=== PATIENT | male | born 1950 | race Caucasian/White ===

== ENCOUNTER 2020-03-05 21:04 | Observation (INO) ==
[2020-03-05] MEDS ORDERED: NITROGLYCERIN SL 0.4 MG TABLET SL PRN (21:26)
[2020-03-05 21:41] LABS: Eosinophils # 0.2 10*3/uL (0.0-0.87); Eosinophils % 4.8 % (0.00-10.9); Hematocrit 34.6 VOL% (42.0-52.0); Hemoglobin 10.9 GM/DL (14.0-18.0); Immature Granulocytes % 0.3 %; Immature Granulocytes Absolute 0.01 #; Lymphocytes # 0.6 10*3/uL (1.4-4.0); Lymphocytes % 16.8 % (21.2-54.2); Mean Corpuscular HGB Conc 31.5 GM/DL (32-36); Mean Corpuscular Volume 85.2 FL (87-102); Mean Platelet Volume 9.8 FL (9.6-12.0); Monocytes % 10.8 % (1.7-12.7); Neutrophils % 67.3 % (38.7-73.9); Platelet Count 190 T/CUMM (130-400); Red Blood Count 4.06 MC/CUMM (3.8-5.5); Red Cell Distribution Width 14.7 % (9.3-17.3); White Blood Count 3.3 T/CUMM (4-12)
[2020-03-05 21:46] LABS: Calcium 9.1 MG/DL (8.5-10.1); Osmolality,Calculated 287.1 MOS/KG (273-304)
[2020-03-05 21:47] LABS: PT Patient Result 10.3 SECS (9.8-11.9)
[2020-03-05] MEDS ORDERED: ONDANSETRON 4 MG/2 ML VIAL IV PRN (22:20)
[2020-03-05] MEDS ORDERED: ACETAMINOPHEN 325 MG TABLET PO PRN (22:20)
[2020-03-06] MEDS: ENOXAPARIN 40 MG/0.4 ML SYRINGE SUBCUT SCH ×2 (00:13→21:45)
[2020-03-06 06:41] LABS: Eosinophils # 0.2 10*3/uL (0.0-0.87); Eosinophils % 5.4 % (0.00-10.9); Hematocrit 32.7 VOL% (42.0-52.0); Hemoglobin 10.7 GM/DL (14.0-18.0); Immature Granulocytes % 0.3 %; Immature Granulocytes Absolute 0.01 #; Lymphocytes # 0.5 10*3/uL (1.4-4.0); Lymphocytes % 15.7 % (21.2-54.2); Mean Corpuscular HGB Conc 32.7 GM/DL (32-36); Mean Corpuscular Volume 83.2 FL (87-102); Mean Platelet Volume 9.6 FL (9.6-12.0); Neutrophils % 67.6 % (38.7-73.9); Platelet Count 163 T/CUMM (130-400); Red Blood Count 3.93 MC/CUMM (3.8-5.5); Red Cell Distribution Width 14.8 % (9.3-17.3)
[2020-03-06 07:06] LABS: Albumin 2.6 G/DL (3.4-5.0); Bilirubin,Total 0.4 MG/DL (0.2-1.0); Calcium 8.9 MG/DL (8.5-10.1); Osmolality,Calculated 278.7 MOS/KG (273-304); Risk Ratio 5.19; Total Protein 6.9 G/DL (6.4-8.3)
[2020-03-06] MEDS ORDERED: ATORVASTATIN 20 MG TABLET PO SCH (09:00)
[2020-03-06] MEDS: ASPIRIN EC 325 MG TABLET PO SCH (09:31)
[2020-03-06] MEDS: carvediloL 3.125 MG TABLET PO SCH ×2 (09:31→17:31)
[2020-03-06] MEDS: ATORVASTATIN 40 MG TABLET PO SCH (09:31)
[2020-03-06] MEDS: lisinopriL 10 MG TABLET PO SCH (09:31)
[2020-03-06] MEDS: ISOSORBIDE DINITRATE 10 MG TABLET PO SCH ×2 (15:36→21:14)
[2020-03-07] MEDS: ASPIRIN EC 325 MG TABLET PO SCH (09:09)
[2020-03-07] MEDS: ISOSORBIDE DINITRATE 10 MG TABLET PO SCH (09:09)
[2020-03-07] MEDS: lisinopriL 10 MG TABLET PO SCH (09:09)
[2020-03-07] MEDS: carvediloL 3.125 MG TABLET PO SCH (09:09)
[2020-03-07] MEDS: ATORVASTATIN 40 MG TABLET PO SCH (09:09)
[2020-03-07 11:44] VITALS: BP 100/55
== END 2020-03-07 14:25 | disposition home or self-care (01) ==
LOC: N.EDINP 21:04 → N.ED 21:04 → SUATTDRO 22:20 → N.EDINP 23:45 → N.TELEN 03-06 00:04
PROVIDERS: ADMIT Family Medicine; ATTEND Internal Medicine